=== PATIENT | male | born 1970 | race Caucasian/White ===

== ENCOUNTER 2016-10-18 13:12 | Emergency (ER) | payer OTHER ==
--- NOTE | 2016-10-18 13:45 | ER Document Report ---
ED Medical Screen (RME) - General Chief Complaint: Chest Pain Stated Complaint: CHEST PAIN Time Seen by Provider: 10/18/16 13:39 Notes: 46-year-old male patient history of two-vessel bypass in 2014, take an 8 [address] ride from [place] to the [place]. Is taking Plavix and aspirin. He has had 2 days of pain in the left anterior chest which is been fairly constant and made worse with a deep breath. Today the pain changed to becoming substernal going up to the throat and again is made worse with deep breath. 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 I have greeted and performed a rapid initial assessment of this patient. A comprehensive ED assessment and evaluation of the patient, analysis of test results and completion of the medical decision making process will be conducted by additional ED providers. TRAVEL OUTSIDE OF THE [place] IN LAST 30 DAYS: No - Related Data Allergies/Adverse Reactions: No Known Allergies Allergy (Unverified 10/18/16 13:17) Past Medical History Renal/ Medical History: Denies: Hx Peritoneal Dialysis
[2016-10-18 14:02] LABS: ABSOLUTE LYMPHOCYTES (AUTO) 1.4 10^3/uL (0.5-4.7); ABSOLUTE MONOCYTES (AUTO) 0.8 10^3/uL (0.1-1.4); ABSOLUTE NEUT (AUTO) 6.2 10^3/uL (1.7-8.2); BASOPHILS % (AUTO) 0.3 % (0-2); EOSINOPHILS % (AUTO) 0.6 % (0-6); HEMATOCRIT 49.9 % (37.9-51.0); HEMOGLOBIN 17.3 g/dL (13.5-17.0); LYMPHOCYTES % (AUTO) 16.8 % (13-45); MEAN CORPUSCULAR HEMOGLOBIN 32.7 pg (27.0-33.4); MEAN CORPUSCULAR HGB CONC 34.7 g/dL (32.0-36.0); MEAN CORPUSCULAR VOLUME 94 fl (80-97); RED BLOOD COUNT 5.29 10^6/uL (4.35-5.55); SEGMENTED NEUTROPHILS % (AUTO) 73.3 % (42-78); WHITE BLOOD COUNT 8.4 10^3/uL (4.0-10.5)
[2016-10-18 14:20] LABS: ALANINE AMINOTRANSFERASE 52 U/L (21-72); ALBUMIN 4.7 g/dL (3.5-5.0); ALKALINE PHOSPHATASE 81 U/L (38-126); ANION GAP 11 (5-19); ASPARTATE AMINO TRANSFERASE 28 U/L (17-59); BILIRUBIN,DIRECT 0.3 mg/dL (0.0-0.4); BLOOD UREA NITROGEN 10 mg/dL (7-20); CALCIUM 9.8 mg/dL (8.4-10.2); CARBON DIOXIDE 30 mmol/L (22-30); CHLORIDE 101 mmol/L (98-107); CREATINE KINASE 152 U/L (55-170); CREATININE RESULT 0.95 mg/dL (0.52-1.25); GLUCOSE 108 mg/dL (75-110); POTASSIUM 4.3 mmol/L (3.6-5.0); SODIUM 141.8 mmol/L (137-145); TOTAL PROTEIN 7.5 g/dL (6.3-8.2)
[2016-10-18 14:32] LABS: CREATINE KINASE MB 0.56 ng/mL (<4.55)
[2016-10-18 14:33] LABS: TROPONIN I < 0.012 ng/mL
--- NOTE | 2016-10-18 14:57 | RADIOLOGY REPORT (SQ) ---
EXAM DESCRIPTION: CHEST SINGLE VIEW COMPLETED DATE/TIME: 10/18/2016 2:12 pm REASON FOR STUDY: chest pain COMPARISON: None. EXAM PARAMETERS: NUMBER OF VIEWS: One view. TECHNIQUE: Single frontal radiographic view of the chest acquired. RADIATION DOSE: NA LIMITATIONS: None. FINDINGS: LUNGS AND PLEURA: No opacities, masses or pneumothorax. No pleural effusion. MEDIASTINUM AND HILAR STRUCTURES: No masses. Contour normal. HEART AND VASCULAR STRUCTURES: Heart normal in size. Normal vasculature. BONES: No acute findings. HARDWARE: Sternotomy wires are in place. OTHER: No other significant finding. IMPRESSION: NO ACUTE RADIOGRAPHIC FINDING IN THE CHEST. TECHNICAL DOCUMENTATION: JOB ID: [id number]
[2016-10-18] MEDS ORDERED: NITROGLYCERIN 0.4 MG/TAB 25 TAB/BOTTLE SL ONE (17:09)
[2016-10-18] MEDS ORDERED: ASPIRIN 81 MG TABLET, CHEWABLE PO ONE (17:09)
--- NOTE | 2016-10-18 17:21 | ER Document Report ---
ED Cardiac - General Chief Complaint: Chest Pain Stated Complaint: CHEST PAIN Time Seen by Provider: 10/18/16 13:39 Mode of Arrival: Ambulatory Information source: Patient TRAVEL OUTSIDE OF THE [place] IN LAST 30 DAYS: No - HPI Patient complains to provider of: Chest pain Use of: denies: Alcohol, Amphetamines, Bath salts, Caffeine, Cocaine, Decongestants Was the onset of pain: Sudden When did pain begin: 2 d AGO Is the pain a: New problem Chest pain location: Substernal - NOW, Under breast - LEFT, AT BEGINNING Quality of pain: Sharp, Tightness Chest pain radiation location: Neck Severity now: Mild Severity at worst: Moderate Chest pain precipitating factors: At Rest Cardiac risk factors: Diabetes, Hypertension, Smoker - FORMERLY, Hx [place] Positive cardiac history: Yes Associated symptoms: denies: Diaphoresis, Edema, Fever/chills, Jaw pain, Lightheaded, Nausea/vomiting, Shortness of breath Exacerbated by: Coughing, Deep breaths Relieved by: Nothing Similar symptoms previously: No Recently seen / treated by doctor: No - Related Data Allergies/Adverse Reactions: No Known Allergies Allergy (Unverified 10/18/16 13:17) Past Medical History - General Information source: Patient - Social History Smoking Status: Former Smoker Chew tobacco use (# tins/day): No Frequency of alcohol use: Social Drug Abuse: None Lives with: Spouse/Significant other - VISITING @ [employer], FROM [facility]. Family History: Hypertension Patient has suicidal ideation: No Patient has homicidal ideation: No - Past Medical History Cardiac Medical History: Reports: Hx Coronary Artery Disease Pulmonary Medical History: Reports: None EENT Medical History: Reports: None Neurological Medical History: Reports: None Endocrine Medical History: Reports: None Renal/ Medical History: Reports: None. Denies: Hx Peritoneal Dialysis Malignancy Medical History: Reports None GI Medical History: Reports: None Musculoskeltal Medical History: Reports None Psychiatric Medical History: Reports: None Past Surgical History: Reports: Hx Cardiac Surgery - bouble bypass, Hx Coronary Artery Bypass Graft - 2015 - Immunizations Hx Diphtheria, Pertussis, Tetanus Vaccination: Yes Review of Systems - Review of Systems Constitutional: No symptoms reported. denies: Diaphoresis EENT: No symptoms reported Cardiovascular: See HPI Respiratory: See HPI Gastrointestinal: No symptoms reported Genitourinary: No symptoms reported Musculoskeletal: No symptoms reported Skin: No symptoms reported Neurological/Psychological: No symptoms reported Physical Exam - Vital signs Vitals: Resp BP Pulse Ox 13 137/91 H 98 10/18/16 15:53 10/18/16 15:53 10/18/16 15:53 Interpretation: Hypertensive. No: Tachycardic, Tachypneic - General General appearance: Appears well, Alert In distress: None - HEENT Head: Normocephalic Eyes: Normal Conjunctiva: Normal Ears: Normal Nasal: Normal Mouth/Lips: Normal Mucous membranes: Normal Pharynx: Normal Neck: Normal - Respiratory Respiratory status: No respiratory distress Chest status: Tender - SLIGHT, LEFT PECTORAL AND BELOW Breath sounds: Normal - Cardiovascular Rhythm: Regular Heart sounds: Normal auscultation Murmur: No - Abdominal Inspection: Normal Distension: No distension Bowel sounds: Normal - Back Back: Normal - Extremities General upper extremity: Normal inspection General lower extremity: Normal inspection. No: Tender, Edema - Neurological Neuro grossly intact: Yes Cognition: Normal Orientation: AAOx4 - Psychological Associated symptoms: Normal affect, Normal mood - Skin Skin Temperature: Warm Skin Moisture: Dry Skin Color: Normal Skin Turgor: Elastic Course - Re-evaluation Re-evalutation: 10/18/16 18:50 Patient reports he is feeling better chest discomfort is improved. Nitroglycerin had no effect on his symptoms, other than a mild headache. Repeat cardiac enzymes remain normal. Results of evaluation discussed with patient and spouse. At this point, a cardiac etiology for his chest discomfort is extremely unlikely. He will be treated symptomatically for chest wall pain. He is encouraged to return promptly if any change in his symptoms. - Vital Signs Vital signs: Temp Pulse Resp BP Pulse Ox 13 137/104 H 99 10/18/16 17:01 10/18/16 17:00 10/18/16 17:01 - Laboratory Result Diagrams: 10/18/16 13:49 10/18/16 13:49 Laboratory results interpreted by me: 10/18/16 13:49 Hgb 17.3 H - Diagnostic Test Radiology reviewed: Image reviewed, Reports reviewed - EKG Interpretation by Me EKG shows normal: Sinus rhythm, [place], Intervals, ST-T Waves. abnormal: QRS Complexes Rate: Normal Rhythm: NSR Voltage: Consistant with [facility] Discharge - Discharge Clinical Impression: Chest wall pain Condition: Stable Disposition: HOME, SELF-CARE Instructions: Chest Wall Pain ([facility]), Anti-Inflammatory Medication ([facility]) Additional Instructions: CONTINUE YOUR USUAL MEDS. YOU MAY TAKE IBUPROFEN OR NAPROXEN FOR PAIN RELIEF IF NEEDED. RETURN TO E.R. IF ANY NEW OR WORSENING SYMPTOMS, ANY TIME.
[2016-10-18 18:35] LABS: CREATINE KINASE MB 0.39 ng/mL (<4.55)
[2016-10-18 18:37] LABS: TROPONIN I < 0.012 ng/mL
[2016-10-18 19:15] VITALS: BP 130/87
--- NOTE | 2016-10-18 20:30 | EKG REPORT ---
SEVERITY:- ABNORMAL ECG - SINUS RHYTHM LEFT VENTRICULAR HYPERTROPHY : Confirmed by: Mao Mathew MD 18-Oct-2016 20:29:38
== END 2016-10-18 19:15 | disposition home or self-care (01) ==
LOC: ER 13:12
DX: R07.89 Other chest pain (principal); Z87.891 Personal history of nicotine dependence
CPT/HCPCS: 36415; 71010; 80053; 82550; 82553; 84484; 85025; 85379; 93005; 93010; 99285